=== PATIENT | male | born 1985 | race Caucasian/White ===

== ENCOUNTER 2018-03-26 19:59 | Emergency (ER) | payer SELFPAY ==
[~2018-03-26] VITALS: Ht 154.9 cm; Wt 82.0 kg
[2018-03-27] MEDS ORDERED: IBUPROFEN 600MG TABLET PO ONE
[2018-03-27 01:48] VITALS: BP 131/94
== END 2018-03-27 01:49 | disposition home or self-care (01) ==
LOC: ER 23:52
DX: S61.512A Laceration without foreign body of left wrist, initial encounter (principal); S71.132A Puncture wound without foreign body, left thigh, initial encounter; S71.131A Puncture wound without foreign body, right thigh, initial encounter; M25.552 Pain in left hip; M54.5 Low back pain; F17.200 Nicotine dependence, unspecified, uncomplicated; F12.10 Cannabis abuse, uncomplicated; Z98.890 Other specified postprocedural states; W54.0XXA Bitten by dog, initial encounter; Y93.89 Activity, other specified; Y92.89 Other specified places as the place of occurrence of the external cause; Y99.8 Other external cause status
CPT/HCPCS: 73502; 99283